=== PATIENT | male | born 1960 | race Caucasian/White ===

== ENCOUNTER 2022-07-11 11:35 | Day surgery (SDC) | payer OTHER, SELFPAY ==
[2022-05-30 09:30] VITALS: BMI 35.4
[2022-06-26 09:20] VITALS: BMI 31.5
--- NOTE | 2022-07-10 12:20 | P.PNAN_ITS ---
Anes - Initial Pre Proc Eval Procedure: Operation Date: 07/11/22 13:30 Proposed Procedures p Screening Colonoscopy - Jack Min MD Date/Time: 07/10/22 12:20 Surgeon: Jack Min MD Pre Op Diagnosis: History of Colon Polyps Patient Data Age: 62 Gender: M Height: 1.83 m Weight: 105.5 kg Allergies Allergy/AdvReac Type Severity Reaction Status Date / Time No Known Allergies Allergy Verified 07/11/22 12:12 Home Medications Medication Instructions Recorded Confirmed Type lisinopril 20 1 tablet PO DAILY #90 tabs 01/21/22 06/26/22 Rx mg-hydrochlorothiazide 12.5 mg tablet metoprolol tartrate 25 mg tablet 25 mg PO BID #180 tabs 03/07/22 06/26/22 Rx Patient hx anesthesia problems: none Family hx anesthesia problems: none Results Review: All pre-operative results and documents have been reviewed as part of the pre- operative evaluation. [facility] Past Medical History Medical History (Updated 07/10/22 @ 16:45 by Jack Min MD) Essential (primary) hypertension Mixed hyperlipidemia Sleep apnea, unspecified Family History Family History Father Family history of cardiovascular disease Acute myocardial infarction, Onset Age: 58 Social History Social History Smoking status: Never smoker Alcohol intake: current Substance use type: does not use Living arrangements: with family Spiritual care concerns: No Anes - Eval Final PreProcedure Day of Procedure 07/10/22 12:20 Patient weight: obese Heart: regular rate and rhythm Lungs: clear to auscultation Airway: Mallampati scale class II Neurological: alert and oriented Last oral intake: >/= 8 hours ASA classification: III Emergent: no Anesthetic plan: proceed Anesthesia type and monitoring: general GIVS and standard monitoring Results Review: All pre-operative results and documents have been reviewed as part of the pre- operative evaluation. Informed Consent: The patient's anesthetic plan and its attendant risks and benefits were discussed with the patient/family/POA. Questions were solicited and answers provided to the satisfaction of the patient/family/POA.
--- NOTE | 2022-07-10 16:44 | PM.HPGS ---
History of Present Illness History of Present Illness Consent: Risks, benefits, and alternatives have been discussed and questions answered. Patient agrees to proceed with procedure. Chief complaint: History of Colon Polyps Narrative: Christopher Redding is a 62 year old male referred for colon cancer screening. He has a history of having had polyps. None were found on his last colonoscopy 6 years ago. Review of Systems Review of Systems: All systems reviewed & are unremarkable except as noted in HPI and below PMFSH Past Medical History Medical History Essential (primary) hypertension Mixed hyperlipidemia Sleep apnea, unspecified Family History Family History Father Family history of cardiovascular disease Acute myocardial infarction, Onset Age: 58 Social History Social History Smoking status: Never smoker Alcohol intake: current Substance use type: does not use Living arrangements: with family Spiritual care concerns: No Meds Home Medications and Allergies Home Medications Medication Instructions Recorded Confirmed Type lisinopril 20 1 tablet PO DAILY #90 tabs 01/21/22 07/11/22 Rx mg-hydrochlorothiazide 12.5 mg tablet metoprolol tartrate 25 mg tablet 25 mg PO BID #180 tabs 03/07/22 07/11/22 Rx Allergies Allergy/AdvReac Type Severity Reaction Status Date / Time No Known Allergies Allergy Verified 07/11/22 12:12 Exam Resp: Auscultation: clear to auscultation bilaterally Cardio: Rate: regular rate Rhythm: regular rhythm GI: GI Palp: Yes Soft to palpation and No Tenderness to palpation present (GI) Assessment and Plan Assessment and plan (1) Colon cancer screening: Code(s): Z12.11 - Encounter for screening for malignant neoplasm of colon Status: Acute Assessment and Plan: Colonoscopy with possible biopsy or polypectomy or cautery or injection of substances.
[2022-07-11] MEDS: LACTATED RINGERS 1,000 ML 150 ML IV CONT (12:00)
[2022-07-11 12:14] VITALS: BP 167/86; PULSE 59; RESP 13; TEMP 36.3; O2SAT 99
[2022-07-11 12:17] VITALS: BMI 31.4
[2022-07-11 13:46] VITALS: BP 120/78; PULSE 70; RESP 16; O2SAT 100
[2022-07-11 13:56] VITALS: BP 139/75; PULSE 65; RESP 16; O2SAT 98
[2022-07-11 14:06] VITALS: BP 143/85; PULSE 68; RESP 16
--- NOTE | 2022-07-11 14:08 | SUR.PHASEII ---
PT AWAKE AND ALERT. DENIES PAIN. DRINKING APPLE JUICE. STATES READY TO GO HOME
--- NOTE | 2022-07-11 14:38 | WPDANESPN ---
Anes - Prog Note Post-Op Date/Time: 07/11/22 14:39 Cardiovascular status: normal Respiratory status: normal Airway patency: baseline Mental status: baseline Post-Op hydration status: normal Vital Signs: Last Vital Signs Temp 36.3 C L 07/11/22 12:14 Pulse 68 07/11/22 14:06 Resp 16 07/11/22 14:06 BP 143/85 H 07/11/22 14:06 Pulse Ox 98 07/11/22 13:56 O2 Del Method Room Air 07/11/22 14:06 Pain Score (VAS): 0 I/O: Intake & Output 07/10/22 07/11/22 07/11/22 23:59 07:59 15:59 Intake Total 50 Balance 50 Post-procedural complaints: none Patient Feedback: Patient satisfied with anesthetic care. Other Findings: Patient vital signs back to baseline. Patient denies nausea and vomiting. Patient's pain under control. Patient OK for discharge.
== END 2022-07-11 14:14 | disposition home or self-care (01) ==
PROVIDERS: PCP Family Medicine; Visit Provider Internal Medicine Gastroenterology
PROC: 0DJD8ZZ Inspection of Lower Intestinal Tract, Via Natural or Artificial Opening Endoscopic (ICD-10-PCS; CPT 45378; principal; 2022-07-11 13:30)
DX: Z86.010 Personal history of colon polyps (principal)
CPT/HCPCS: 45378

== ENCOUNTER 2024-06-02 11:21 | Outpatient (CLI) | payer MEDICARE, SELFPAY ==
[2024-06-02 13:06] LABS: Basophils Absolute Auto 0.1 K/mm3 (0.0-0.1); Basophils Percent Auto 0.9 % (0.2-1.2); Eosinophils Absolute Auto 0.2 K/mm3 (0-0.3); Eosinophils Percent Auto 3.5 % (0-4.4); Hematocrit 44.8 % (42.0-52.0); Hemoglobin 15.5 g/dL (14.0-18.0); Immature Granulocyte Absolute 0.02 K/mm3 (0.00-0.031); Immature Granulocyte Percent A 0.3 % (0-0.5); Lymphocytes Absolute Auto 1.31 K/mm3 (0.9-3.2); Lymphocytes Percent Auto 20.1 % (18.3-44.2); Mean Corpuscular HGB Conc 34.6 g/dl (32-36); Mean Corpuscular Volume 92.4 fl (80-100); Mean Platelet Volume 10.8 fl (7.4-10.4); Monocytes Absolute Auto 0.7 K/mm3 (0.1-0.6); Monocytes Percent Auto 10.4 % (2.6-8.5); Neutrophils Absolute Auto 4.2 K/mm3 (1.3-6.7); Neutrophils Percent Auto 64.8 % (45.5-73.1); Platelet Count Result 242 k/mm3 (150-375); Red Blood Count 4.85 M/mm3 (4.6-6.20); Red Cell Distribution Width 12.4 % (11.5-14.5); White Blood Count 6.5 K/mm3 (4.5-10.0)
[2024-06-02 14:59] LABS: Hemoglobin A1C 5.8 % (<5.7)
[2024-06-03 10:59] LABS: FSH 2.9 mIU/mL (1.4-12.8); LH 2.6 mIU/mL (1.6-15.2)
[2024-06-05 04:59] LABS: Testosterone Total 265 ng/dL (250-1100)
== END 2024-06-02 11:22 | disposition home or self-care (01) ==
PROVIDERS: PCP Family Medicine; Visit Provider Family Medicine
DX: G62.9 Polyneuropathy, unspecified (principal); Z12.5 Encounter for screening for malignant neoplasm of prostate; R73.03 Prediabetes; E29.1 Testicular hypofunction
CPT/HCPCS: 36415; 82607; 83001; 83002; 83036; 84153; 84403; 84443; 85025; G0103